=== PATIENT | female | born 2000 | race Caucasian/White ===

== ENCOUNTER 2020-09-26 23:17 | Inpatient (IN) | payer OTHER ==
[~2020-09-26] VITALS: Ht 165.2 cm; Wt 67.7 kg
--- NOTE | 2020-09-26 23:30 | NUR ---
PT ARRIVES TO UNIT VIA WHEELCHAIR WITH SPOUSE FROM [facility] WITH CONCERNS OF OLIGOHYDRAMNIOS. DR. GRACIA TO ASSUME CARE OF PT, CALLED PREVIOUS WITH ORDERS TO ADMIT AND START IV. PT ORIENTED TO ROOM, CHANGED INTO GOWN. AMNIOSWAB PERFORMED, WAS NEGATIVE, SVE OF 60/-2, NO FLUID NOTED. VS OBTAINED, EFM X2 APPLIED.
[2020-09-27] VITALS (66 sets, daily range): BP systolic 102–127; BP diastolic 50–85; PULSE 53–100; TEMP 97.5–98.4
--- NOTE | 2020-09-27 00:34 | NUR ---
DR. GRACIA IN ROOM TO EVALUATE PT. BEDSIDE US AT 0042. SVE PERFORMED BY DR. GRACIA, SVE OF /3. DISCUSSES C/S VS VAGINAL DELIVERY WITH PT, PT OPTS TO ATTEMPT VAGINAL DELIVERY. WILL START PITOCIN PER DR. GRACIA.
[2020-09-27 00:47] LABS: HEMOGLOBIN 10.2 g/dl (12.0-15.0); MEAN CELL VOLUME 86 fl (80.0-95.0); MEAN CORPUSCULAR HEMOGLOBIN 28 pg (26.0-32.0); MEAN CORPUSCULAR HGB CONC 33 g/dl (33.0-37.0); MEAN PLATELET VOLUME 10.4 fl (7.4-10.4); PLATELET COUNT 231 K/mm3 (130-400); RED BLOOD COUNT 3.59 M/mm3 (4.10-5.30); REDCELL DISTRIBUTION WIDTH-CV 12.8 % (11.5-14.5)
[2020-09-27 00:52] LABS: HEMATOCRIT 30.7 % (35.0-45.0)
[2020-09-27 01:44] LABS: EOSINOPHIL 2 % (0-4); LYMPHOCYTE 26 % (20.0-51.0); NEUTROPHILS 69 % (42.0-75.2)
[2020-09-27 01:45] LABS: PLATELET ESTIMATE NORMAL (NORMAL)
--- NOTE | 2020-09-27 13:05 | NUR ---
1305- Dr. Hernandez to bedside. Reviews plan of care with patient and spouse. SVE by provider /, unchanged. 1318- Decision to proceed with primary section. 1328- Wilfredo Alvarado CRNA to bedside. 1334- EFM off and patient ambulatory to OR suite.
[2020-09-28] VITALS: BP 101/56; PULSE 86; TEMP 97.9
[2020-09-28 04:30] VITALS: BP 111/66; PULSE 94; TEMP 97.7
[2020-09-28 07:18] VITALS: BP 108/64; PULSE 70; TEMP 97.6
[2020-09-28 08:06] LABS: HEMATOCRIT 29.1 % (35.0-45.0); HEMOGLOBIN 9.6 g/dl (12.0-15.0)
[2020-09-28] MEDS ORDERED: PERCOCET 325 MG1 TA2 PO (08:23)
[2020-09-28] MEDS ORDERED: IBU600 MG PO (08:23)
[2020-09-28 09:15] VITALS: BP 106/54; PULSE 70
--- NOTE | 2020-09-28 09:15 | NUR ---
Initial visit attempt; Family resting, Stone Setter Apprentice left card of congratulations for the of their son and information regarding the availability of spiritual care at our hospital.
--- NOTE | 2020-09-28 09:15 | NUR ---
0915CALLED THE NURSE IN STATING THAT SHE NEEDED TO SEE A DOCTOR RIGHT AWAY, SHE COMPLAINED OF HAVING DIFFICULTY KEEPING HER EYES OPEN AND STAYING AWAKE. VSS. BP 106/54, HR 70, LOCHIA WNL, PT ALERT AND ORIENTED. PERCOCET X 2 WAS GIVEN 45 MINUTES PRIOR. EXPLAINED THAT COULD BE WHAT IS CAUSING HER SYMPTOMS, PT STATES IT IS BECAUSE OF HER IRON, THIS NURSE EXPLAINED HGB LEVELS AND THAT SHE WAS STARTED ON IRON AND WAS GIVEN AT THIS TIME. PT STATES UNDERSTANDING. ENCOURAGED TO TAKE A NAP, SHE WAS UP HALF OF THE NIGHT. PT STATES UNDERSTANDING. 0930PATIENT ALERT, ORIENTED, SPEAKING WITH . 1200PATIENT REPORTS FEELING BETTER, FEEDING A BOTTLE TO BABY. 1215PATIENT CALLS NURSE IN TO ROOM STATING SHE PUKED ALL OVER HERSELF AND BABY, BABY TAKEN TO NURSERY, PATIENT TO SHOWER. 1300PATIENT CALLS NURSE TO ROOM REQUESTING HER BLOOD SUGAR TO BE TAKEN BECAUSE WHEN SHE WAS LITTLE HER 'PARENTS CHECKED MY BLOOD SUGAR EVERY TIME I PUKED,' PT DENIES A HISTORY OF BEING DIABETIC AND DENIES CHECKING BLOOD SUGAR AT HOME. PT REPORTS SHE IS FEELING FINE NOW, BUT REQUESTED AT LEAST A TEMPERATURE CHECK. 97.8 ORALLY. TOLERATED SHOWER WELL. PT HAS NOT REALLY RESTED OR NAPPED ALL DAY, ENCOURAGED TO DO SO. PT STATES UNDERSTANDING, BABY LEFT IN NURSERY.
[2020-09-28 12:30] VITALS: TEMP 97.8
--- NOTE | 2020-09-28 20:00 | NUR ---
PARENTS INFORMED THAT THEY NEED TO BRING CARSEAT TO THE UNIT TO HAVE A CARSEAT TRIAL. PROCESS EXPLAINED AND UNDERSTANDING VOICED
[2020-09-28 21:00] VITALS: BP 105/60; PULSE 67; TEMP 97.9
--- NOTE | 2020-09-28 21:00 | NUR ---
DAD TO NSY STATING MOM THINGS THE BABY IS COLD BECAUSE THE BABY'S CHEEK IS COLD. RN TO ROOM- BABY'S CHEEKS ARE WARM TO THE TOUCH- AX. TEMP IS 98.8 REVIEWED WITH MOM OF NORMAL NB TEMP. MOM STATES SHE HAS A LOW TEMPERTURE SO SHE IS VERY WORRIED ABOUT THE BABY. RN REASSURED PARENTS THAT BABY'S TEMP IS FINE. MOM STATES SHE WANTS TO SHOWER AGAIN BECAUSE SHE HAS SENSITIVE SKIN. MOM WANTS TO KNOW IF BABY WILL NEED A BATH EVERY DAY. RN EXPLAINS EVERY 3 DAYS IS ENOUGH FOR NB TO BE BATHED
[2020-09-29 08:12] VITALS: BP 109/74; PULSE 74; TEMP 97.6
[2020-09-29 16:00] VITALS: BP 104/68; PULSE 72; TEMP 97.8
[2020-09-29 19:00] VITALS: BP 114/70; PULSE 70; TEMP 98.4
[2020-09-30 08:00] VITALS: BP 116/75; PULSE 60; TEMP 98.1
== END 2020-09-30 13:20 | disposition home or self-care (01) | DRG 787 ==
LOC: LDRO 23:17 → OB 23:30 → LDR 23:30 → OB 09-27 15:50
PROVIDERS: ADMIT Obstetrics & Gynecology
PROC: 10D00Z1 Extraction of Products of Conception, Low, Open Approach (ICD-10-PCS; principal; 2020-09-27)
DX: O42.913 Preterm premature rupture of membranes, unspecified as to length of time between rupture and onset of labor, third trimester (principal); O99.354 Diseases of the nervous system complicating childbirth; Z37.0 Single live birth; O99.824 Streptococcus B carrier state complicating childbirth; O99.344 Other mental disorders complicating childbirth; O99.62 Diseases of the digestive system complicating childbirth; F31.9 Bipolar disorder, unspecified; F90.9 Attention-deficit hyperactivity disorder, unspecified type; K21.9 Gastro-esophageal reflux disease without esophagitis; G43.909 Migraine, unspecified, not intractable, without status migrainosus; O99.892 Other specified diseases and conditions complicating childbirth; M41.9 Scoliosis, unspecified; O90.81 Anemia of the puerperium; D64.9 Anemia, unspecified; Z3A.36 36 weeks gestation of pregnancy
CPT/HCPCS: J0690; J1885; J2250; J2370; J2405; J2540; J2590; J7120